=== PATIENT | female | born 1975 | race Two or more races ===

== ENCOUNTER 2023-08-31 00:43 | Emergency (ER) | payer OTHER ==
[~2023-08-31] VITALS: Ht 154.9 cm; Wt 72.6 kg
[2023-08-31 01:07] VITALS: BP 133/98; TEMP 98.2
[2023-08-31] MEDS ORDERED: CLIN300C12 PO (01:20)
[2023-08-31] MEDS ORDERED: ACET-3117 PO (01:20)
[2023-08-31] MEDS ORDERED: IBUP-1957 PO (01:20)
[2023-08-31] MEDS ORDERED: ACETAMINOPHEN ES 500 MG TABLET ONE (01:27)
[2023-08-31] MEDS ORDERED: CLINDAMYCIN HCL 150 MG CAPSULE ONE (01:28)
[2023-08-31] MEDS ORDERED: IBUPROFEN 400 MG TABLET ONE (01:28)
[2023-08-31] MEDS: IBUPROFEN 400 MG TABLET PO ONE (01:33)
[2023-08-31] MEDS: ACETAMINOPHEN ES 500 MG TABLET PO ONE (01:33)
[2023-08-31] MEDS: CLINDAMYCIN HCL 150 MG CAPSULE PO ONE (01:33)
[2023-08-31 01:34] VITALS: O2SAT 99
== END 2023-08-31 01:34 | disposition home or self-care (01) ==
LOC: ER 00:46
DX: K04.7 Periapical abscess without sinus (principal); Z88.0 Allergy status to penicillin; Z88.6 Allergy status to analgesic agent

== ENCOUNTER 2023-09-05 17:37 | Emergency (ER) | payer OTHER ==
[~2023-09-05] VITALS: Ht 167.6 cm; Wt 66.7 kg
[~2023-09-05 17:37] MED LIST: ACET-3117 PO; CLIN300C12 PO; IBUP-1957 PO
[2023-09-05 18:32] VITALS: BP 134/71; TEMP 98.4; O2SAT 100
== END 2023-09-05 18:44 | disposition left against medical advice (07) ==
LOC: ER 17:40
DX: K08.89 Other specified disorders of teeth and supporting structures (principal); Z76.0 Encounter for issue of repeat prescription; Z53.21 Procedure and treatment not carried out due to patient leaving prior to being seen by health care provider